=== PATIENT | male | born 1980 | race Caucasian/White ===

== ENCOUNTER 2019-01-12 04:24 | Emergency (ER) | payer BC ==
[2019-01-12 05:17] VITALS: RESP 18
--- NOTE | 2019-01-12 05:55 | ED ---
General Adult HPI - General Source: patient Mode of arrival: ambulatory Limitations: no limitations <TravjuanMechellearmin Melendez - Last Filed: 01/12/19 05:55> <Tyler Ross - Last Filed: 01/12/19 07:41> - General Chief complaint: Shortness of Breath Stated complaint: ADEOLA Time Seen by Provider: 01/12/19 04:38 - History of Present Illness Initial comments: Dictation was produced using [employer] dictation software. please excuse any grammatical, word or spelling errors. Chief Complaint: 38-year-old male with past medical history ankylosing spondylitis, chronic fungal gut syndrome presents with episode of shortness of breath. History of Present Illness: She is a 2-year-old male with past nuchal history ankylosing spondylitis, chronic fatigue and fungal gut syndrome presents with episode of shortness of breath. Patient states he gets these frequently. He gets these episodes approximately once a month. He was sleeping when he woke up. He began having some acute dyspnea. He describes it as inability to inspire fully. He states last approximately 10 minutes. States that it then went away. Then he came back for another 10 minutes. Patient came to the emergency department. Upon my evaluation patient has been asymptomatic for approximately one hour. As any fever, coughs, chills. Patient does take antifungal medications, naltrexone, Lamisil and bupropion. Patient has a histo ry of lung disease or cardiac disease. The ROS documented in this emergency department record has been reviewed and confirmed by me. Those systems with pertinent positive or negative responses have been documented in the HPI. All other systems are other negative and/or noncontributory. PHYSICAL EXAM: General Impression: Alert and oriented x3, not in acute distress HEENT: Normocephalic atraumatic, extra-ocular movements intact, pupils equal and reactive to light bilaterally, mucous membranes moist. Cardiovascular: Heart regular rate and rhythm, S1&S2 audible, no murmurs, rubs or gallops Chest: Lungs clear to auscultation bilaterally, no rhonchi, no wheeze, no rales Abdomen: Bowel sounds present, abdomen soft, non-tender, non-distended, no organomegaly Musculoskeletal: Pulses present and equal in all extremities, no peripheral edema Motor: Power 5/5 bilaterally, no focal deficits noted Neurological: CN II-XII grossly intact, no focal motor or sensory deficits noted Skin: Intact with no visualized rashes Psych: Normal affect and mood ED course: 38-year-old male presents with episode of shortness of breath. Patient states he gets these episodes regularly. Naproxen 12 times per month. Patient has negative physical examination. He is currently asymptomatic. As upon arrival are within acceptable limits. EKG interpretation: Ventricular rate sinus bradycardia with first-degree AV block, ventricular rate 50, MN interval 210, QRS 100, QTC 390. No MN prolongation, no QTC prolongation, no ST or T-wave changes noted. Overall, this EKG is unremarkable (Santos Madden) - Related Data Home Medications Medication Instructions Recorded Confirmed Celecoxib [CeleBREX] 200 mg PO BID 01/12/19 01/12/19 Naltrexone HCl [Revia] 1.5 mg PO HS 01/12/19 01/12/19 Nystatin 100,000 Unit/ml Susp 5 ml PO QID 01/12/19 01/12/19 [Mycostatin Oral Susp] Terbinafine HCl [LamISIL] 250 mg PO DAILY 01/12/19 01/12/19 buPROPion HCL [Zyban] 150 mg PO 01/12/19 Previous Rx's Medication Instructions Recorded Albuterol Inhaler [Ventolin Hfa 2 puff INHALATION Q6HR PRN #1 01/12/19 Inhaler] inhaler Allergies Allergy/AdvReac Type Severity Reaction Status Date / Time No Known Allergies Allergy Verified 01/12/19 04:34 Review of Systems ROS Other: All systems not noted in ROS Statement are negative. <Santos Madden - Last Filed: 01/12/19 05:55> ROS Other: All systems not noted in ROS Statement are negative. <Tyler Ross - Last Filed: 01/12/19 07:41> ROS Statement: Those systems with pertinent positive or pertinent negative responses have been documented in the HPI. Past Medical History Additional Past Medical History / Comment(s): arthritis of the spine. History of Any Multi-Drug Resistant Organisms: None Reported Past Surgical History: Appendectomy Past Psychological History: No Psychological Hx Reported Smoking Status: Former smoker Past Alcohol Use History: None Reported Past Drug Use History: None Reported <Santos Madden - Last Filed: 01/12/19 05:55> General Exam Limitations: no limitations <Santos Madden - Last Filed: 01/12/19 05:55> Course Vital Signs 01/12/19 01/12/19 04:31 05:16 Temperature 97.8 F Pulse Rate 55 L 60 Respiratory 16 18 Rate Blood Pressure 145/93 143/83 O2 Sat by Pulse 100 99 Oximetry Medical Decision Making - Lab Data Result diagrams: 01/12/19 06:33 01/12/19 06:33 - Radiology Data Radiology results: report reviewed (I did review the imaging and report no acute findings are seen.), image reviewed <Tyler Ross - Last Filed: 01/12/19 07:41> - Medical Decision Making Patient was endorsed me at our shift change pending labs and x-rays. X-rays are unremarkable lab work is within reasonable normal limits. Patient has had periodic episodes of dyspnea. He is a former smoker who quit 7 years ago. At this time is asymptomatic. He will be discharged the presentation is consistent with a bronchospasm he will be given a prescription for an inhaler. He is a follow-up with his doctor and return when necessary (Tyler Ross) - Lab Data Lab Results 01/12/19 01/12/19 01/12/19 Range/Units 06:33 06:33 06:33 WBC 5.2 (3.8-10.6) k/uL RBC 5.02 (4.30-5.90) m/uL Hgb 14.9 (13.0-17.5) gm/dL Hct 44.7 (39.0-53.0) % MCV 89.0 (80.0-100.0) fL MCH 29.7 (25.0-35.0) pg MCHC 33.3 (31.0-37.0) g/dL RDW 12.4 (11.5-15.5) % Plt Count 241 (150-450) k/uL Neutrophils % 60 % Lymphocytes % 32 % Monocytes % 6 % Eosinophils % 2 % Basophils % 0 % Neutrophils # 3.1 (1.3-7.7) k/uL Lymphocytes # 1.6 (1.0-4.8) k/uL Monocytes # 0.3 (0-1.0) k/uL Eosinophils # 0.1 (0-0.7) k/uL Basophils # 0.0 (0-0.2) k/uL PT 11.3 (9.0-12.0) sec INR 1.1 (<1.2) APTT 24.6 (22.0-30.0) sec Sodium 141 (137-145) mmol/L Potassium 4.2 (3.5-5.1) mmol/L Chloride 110 H (98-107) mmol/L Carbon Dioxide 26 (22-30) mmol/L Anion Gap 5 mmol/L BUN 20 (9-20) mg/dL Creatinine 0.95 (0.66-1.25) mg/dL Est GFR (CKD-EPI)AfAm >90 (>60 ml/min/1.73 sqM) Est GFR (CKD-EPI)NonAf >90 (>60 ml/min/1.73 sqM) Glucose 91 (74-99) mg/dL Calcium 9.3 (8.4-10.2) mg/dL Total Bilirubin 0.5 (0.2-1.3) mg/dL AST 19 (17-59) U/L ALT 25 (21-72) U/L Alkaline Phosphatase 50 (38-126) U/L Troponin I (0.000-0.034) ng/mL Total Protein 6.3 (6.3-8.2) g/dL Albumin 4.0 (3.5-5.0) g/dL 01/12/19 Range/Units 06:33 WBC (3.8-10.6) k/uL RBC (4.30-5.90) m/uL Hgb (13.0-17.5) gm/dL Hct (39.0-53.0) % MCV (80.0-100.0) fL MCH (25.0-35.0) pg MCHC (31.0-37.0) g/dL RDW (11.5-15.5) % Plt Count (150-450) k/uL Neutrophils % % Lymphocytes % % Monocytes % % Eosinophils % % Basophils % % Neutrophils # (1.3-7.7) k/uL Lymphocytes # (1.0-4.8) k/uL Monocytes # (0-1.0) k/uL Eosinophils # (0-0.7) k/uL Basophils # (0-0.2) k/uL PT (9.0-12.0) sec INR (<1.2) APTT (22.0-30.0) sec Sodium (137-145) mmol/L Potassium (3.5-5.1) mmol/L Chloride (98-107) mmol/L Carbon Dioxide (22-30) mmol/L Anion Gap mmol/L BUN (9-20) mg/dL Creatinine (0.66-1.25) mg/dL Est GFR (CKD-EPI)AfAm (>60 ml/min/1.73 sqM) Est GFR (CKD-EPI)NonAf (>60 ml/min/1.73 sqM) Glucose (74-99) mg/dL Calcium (8.4-10.2) mg/dL Total Bilirubin (0.2-1.3) mg/dL AST (17-59) U/L ALT (21-72) U/L Alkaline Phosphatase (38-126) U/L Troponin I <0.012 (0.000-0.034) ng/mL Total Protein (6.3-8.2) g/dL Albumin (3.5-5.0) g/dL Disposition <Santos Madden - Last Filed: 01/12/19 05:55> Is patient prescribed a controlled substance at d/c from ED?: No <Tyler Ross - Last Filed: 01/12/19 07:41> Clinical Impression: Acute bronchospasm Disposition: HOME SELF-CARE Condition: Good Instructions (If sedation given, give patient instructions): Bronchospasm (ED) Prescriptions: Albuterol Inhaler [Ventolin Hfa Inhaler] 2 puff INHALATION Q6HR PRN #1 inhaler PRN Reason: Dyspnea Referrals: Nakul Mckinnon MD [Primary Care Provider] - 1-2 days
--- NOTE | 2019-01-12 06:00 | XR ---
EXAM: XR Chest, 2 Views CLINICAL HISTORY: Pain/ shortness of breath TECHNIQUE: Frontal and lateral views of the chest. COMPARISON: No relevant prior studies available. FINDINGS: Lungs: Unremarkable. No consolidation. Pleural space: Unremarkable. No pneumothorax. Heart: Unremarkable. No cardiomegaly. Mediastinum: Unremarkable. Bones/joints: Unremarkable. IMPRESSION: Unremarkable 2 views of the chest
[2019-01-12 06:53] LABS: Basophils % (A) 0 %; Eosinophils # (A) 0.1 k/uL (0-0.7); Eosinophils % (A) 2 %; HCT 44.7 % (39.0-53.0); HGB 14.9 gm/dL (13.0-17.5); Lymphocytes # (A) 1.6 k/uL (1.0-4.8); Lymphocytes % (A) 32 %; MCH 29.7 pg (25.0-35.0); MCHC 33.3 g/dL (31.0-37.0); Mean Platelet Volume 6.5; Monocytes # (A) 0.3 k/uL (0-1.0); Monocytes % (A) 6 %; Neutrophils # (A) 3.1 k/uL (1.3-7.7); Neutrophils % (A) 60 %; Platelet Count 241 k/uL (150-450); RBC 5.02 m/uL (4.30-5.90); RDW 12.4 % (11.5-15.5); WBC 5.2 k/uL (3.8-10.6)
[2019-01-12 07:05] LABS: ALT 25 U/L (21-72); AST 19 U/L (17-59); Alkaline Phosphatase 50 U/L (38-126); Anion Gap 5 mmol/L; Blood Urea Nitrogen 20 mg/dL (9-20); Calcium 9.3 mg/dL (8.4-10.2); Carbon Dioxide 26 mmol/L (22-30); Chloride 110 mmol/L (98-107); Glucose 91 mg/dL (74-99); INR 1.1 (<1.2); Partial Thromboplastin Time 24.6 sec (22.0-30.0); Potassium 4.2 mmol/L (3.5-5.1); Prothrombin Time 11.3 sec (9.0-12.0); Sodium 141 mmol/L (137-145); Total Bilirubin 0.5 mg/dL (0.2-1.3); Total Protein 6.3 g/dL (6.3-8.2)
[2019-01-12 07:44] VITALS: BP 132/77; PULSE 55; TEMP 97.5
== END 2019-01-12 07:58 | disposition home or self-care (01) ==
LOC: EC 04:24
DX: J98.01 Acute bronchospasm (principal); I44.0 Atrioventricular block, first degree; Z87.891 Personal history of nicotine dependence; Z79.899 Other long term (current) drug therapy
CPT/HCPCS: 36415; 71046; 80053; 84484; 85025; 85610; 85730; 93005; 99285